=== PATIENT | male | born 1980 | race Caucasian/White ===

== ENCOUNTER 2022-03-28 15:49 | Emergency (ER) | payer SELFPAY ==
[2022-03-28 17:37] LABS: ESTIMATED GFR 71 mL/min (>60)
== END 2022-03-28 18:37 | disposition home or self-care (01) ==
LOC: JP.ED 15:49
DX: R10.11 Right upper quadrant pain (principal); Z72.0 Tobacco use
CPT/HCPCS: 36415; 80053; 83690; 85025; 99284

== ENCOUNTER 2023-03-19 14:12 | Emergency (ER) | payer SELFPAY ==
[2023-03-19] MEDS ORDERED: Sodium Chloride 0.9% 1,000 ML IV STA (15:36)
[2023-03-19] MEDS ORDERED: Sodium Chloride 0.9% 10 ML Syringe FLUSH PRN (15:36)
[2023-03-19] MEDS ORDERED: Sodium Chloride 0.9% 10 ML Syringe FLUSH ONE (15:53)
[2023-03-19] MEDS ORDERED: Sodium Chloride 0.9% 50 ML IV ONE (15:53)
[2023-03-19] MEDS ORDERED: Iopamidol 612 MG/ML 100 ML Bottle IV ONE (15:53)
[2023-03-19 15:59] LABS: BASOPHILS ABSOLUTE AUTO 0.04 K/uL (0.00-0.10); BASOPHILS PERCENT AUTO 0.4 % (0.1-1.3); EOSINOPHILS ABSOLUTE AUTO 0.09 K/uL (0.00-0.40); HEMATOCRIT 48.8 % (38.4-49.7); HEMOGLOBIN 17.2 g/dL (12.9-16.9); IMMATURE GRAN PERCENT AUTO 0.2 % (0.0-0.7); LYMPHOCYTES PERCENT AUTO 32.7 % (11.4-47.7); MEAN CORPUSCULAR HEMOGLOBIN 31.4 pg (31.6-35.5); MEAN CORPUSCULAR HGB CONC 35.2 g/dL (31.6-35.5); MEAN CORPUSCULAR VOLUME 89.1 fL (81.4-99.0); MONOCYTES ABSOLUTE AUTO 0.69 K/uL (0.20-0.90); MONOCYTES PERCENT AUTO 7.5 % (3.3-12.6); NEUTROPHILS ABSOLUTE AUTO 5.33 K/uL (1.0-7.6); NEUTROPHILS PERCENT AUTO 58.2 % (40.0-78.1); PLATELET COUNT,PLT 223 K/uL (130-375); RED BLOOD CELL COUNT 5.48 M/uL (4.14-5.76); WHITE BLOOD CELL COUNT,WBC 9.2 K/uL (3.2-11.0)
[2023-03-19 16:03] LABS: IMMATURE GRAN ABSOLUTE AUTO 0.02 K/uL (0.00-0.23)
[2023-03-19 16:23] LABS: A/G RATIO 1.2 (1.2-2.2); ALANINE AMINOTRANSFERASE,ALT 132 U/L (12-78); ALBUMIN 3.9 g/dL (3.4-5.0); ALKALINE PHOSPHATASE 68 U/L (46-116); ASPARTATE AMNIOTRANSFERASE,AST 58 U/L (15-37); BILIRUBIN TOTAL 1.3 mg/dL (0.2-1.0); BLOOD UREA NITROGEN,BUN 20 mg/dL (7-18); CALCIUM 8.6 mg/dL (8.5-10.1); CARBON DIOXIDE,CO2 29 mmol/L (21-32); CHLORIDE,CL 102 mmol/L (100-108); CREATININE 1.2 mg/dL (0.8-1.3); EST CRCL DRUG DOSING (CG) 78.38 mL/min; ESTIMATED GFR 78 mL/min (>60); GLUCOSE RANDOM 112 mg/dL (74-106); POTASSIUM,K 3.8 mmol/L (3.6-5.2); PROTEIN TOTAL,TP 7.1 g/dL (6.4-8.2); SODIUM,NA 139 mmol/L (140-148); TROPONIN I HIGH SENSITIVITY 5.5 pg/mL (<=60.3)
[2023-03-19 16:24] LABS: ANION GAP 11.8 mmol/L (5.0-14.0)
== END 2023-03-19 17:38 | disposition home or self-care (01) ==
LOC: JP.ED 14:12
DX: K75.9 Inflammatory liver disease, unspecified (principal)
CPT/HCPCS: 36415; 74177; 80053; 83605; 83690; 84484; 85025; 99284; J3490; Q9967

== ENCOUNTER 2023-07-15 08:36 | Day surgery (SDC) | payer BC ==
[2023-07-15] MEDS: Lactated Ringers 1,000 ML IV SCH (10:01)
[2023-07-15] MEDS ORDERED: Propofol 200 MG/20 ML SDV ONE (10:51)
[2023-07-15] MEDS ORDERED: Midazolam 1 MG/ML 2 ML SDV ONE (10:51)
[2023-07-15] MEDS ORDERED: fentaNYL 50 MCG/ML SDV ONE (10:51)
== END 2023-07-15 13:41 | disposition home or self-care (01) ==
LOC: JP.SDS 08:36
PROVIDERS: ATTEND Student in an Organized Health Care Education/Training Program
DX: K29.50 Unspecified chronic gastritis without bleeding (principal); K21.9 Gastro-esophageal reflux disease without esophagitis
CPT/HCPCS: 43239; 88305; 88342; J2250; J2704; J3010; J7120